=== PATIENT | male | born 1970 | race African-American/Black ===

== ENCOUNTER 2021-02-03 17:51 | Inpatient (IN) | payer OTHER ==
[~2021-02-03] VITALS: Ht 185.4 cm; Wt 122.0 kg
[2021-02-03] MEDS ORDERED: ONDANSETRON HCL 4MG/2ML INJ IV STA (19:59)
[2021-02-03] MEDS ORDERED: SODIUM CHLORIDE 0.9% 1,000 ML IV ONE (20:00)
[2021-02-03 20:25] LABS: BASOPHILS % 0.9 % (0.0-2.0); EOSINOPHILS % 0.3 % (0.0-5.0); HEMATOCRIT. 40.2 % (42.0-52.0); HEMOGLOBIN. 13.9 g/dL (14.0-18.0); LYMPHOCYTES % 10.7 % (20.0-50.0); MEAN CORPUSCULAR VOLUME 86.7 fL (80.0-94.0); MEAN PLATELET VOLUME 9.9 fl (7.4-10.4); MONOCYTES % 5.6 % (2.0-8.0); NEUTROPHILS % 82.5 % (40.0-76.0); PLATELET 241 x1000/uL (130-400); RED BLOOD CELL COUNT 4.64 mill/uL (4.7-6.1); RED CELL DISTRIBUTION WIDTH 14.2 % (11.6-14.6)
[2021-02-03 20:31] LABS: CHLORIDE 101 mEq/L (98-107)
[2021-02-03] MEDS ORDERED: ASPIRIN 325MG EC TABLET PO ONE (21:30)
[2021-02-04 00:11] VITALS: BP 135/71
[2021-02-04 01:00] VITALS: BP 135/71
[2021-02-04] MEDS ORDERED: ATEN-42 PO (01:16)
[2021-02-04] MEDS ORDERED: AMLO10TA80 PO (01:16)
[2021-02-04] MEDS ORDERED: LOSA1TAB40 PO (01:16)
[2021-02-04] MEDS ORDERED: ASPI-1497 PO (01:16)
[2021-02-04] MEDS ORDERED: POTA-9 PO (01:16)
[2021-02-04] MEDS ORDERED: CLONIDINE 0.1MG TABLET PO PRN (02:00)
[2021-02-04 04:00] VITALS: BP 137/84
[2021-02-04 08:00] VITALS: BP 160/80
[2021-02-04 08:16] LABS: BASOPHILS % 0.4 % (0.0-2.0); EOSINOPHILS % 1.7 % (0.0-5.0); HEMATOCRIT. 40.8 % (42.0-52.0); HEMOGLOBIN. 13.6 g/dL (14.0-18.0); LYMPHOCYTES % 29.2 % (20.0-50.0); MEAN CORPUSCULAR HEMOGLOBIN 29.9 pg (28.0-32.0); MEAN CORPUSCULAR VOLUME 89.5 fL (80.0-94.0); MEAN PLATELET VOLUME 9.9 fl (7.4-10.4); NEUTROPHILS % 59.7 % (40.0-76.0); PLATELET 231 x1000/uL (130-400); RED BLOOD CELL COUNT 4.56 mill/uL (4.7-6.1); RED CELL DISTRIBUTION WIDTH 14.2 % (11.6-14.6)
[2021-02-04 08:21] LABS: CHLORIDE 106 mEq/L (98-107)
[2021-02-04 08:27] LABS: PHOSPHORUS 2.5 mg/dL (2.5-4.9)
[2021-02-04 08:28] LABS: LDL CHOLESTEROL 146 mg/dL (5-100)
[2021-02-04 08:29] LABS: HDL CHOLESTEROL 37 mg/dL (40-59)
== END 2021-02-04 11:24 | disposition left against medical advice (07) | DRG 74 ==
LOC: ER 17:51 → 7EST 22:13 → EDBEDREQSVC 22:22 → ENRESERV 23:49
PROVIDERS: ADMIT Internal Medicine; ATTEND Internal Medicine
DX: G90.8 Other disorders of autonomic nervous system (principal); I24.9 Acute ischemic heart disease, unspecified; I10 Essential (primary) hypertension; Z53.29 Procedure and treatment not carried out because of patient's decision for other reasons; E78.5 Hyperlipidemia, unspecified
CPT/HCPCS: 36415; 71045; 80048; 80053; 80061; 84100; 84484; 85025; 93005; 99291; J2405; J7030